=== PATIENT | male | born 2000 | race Caucasian/White ===

== ENCOUNTER 2023-12-15 13:38 | Emergency (ER) | payer OTHER ==
[~2023-12-15] VITALS: Ht 172.7 cm; Wt 77.7 kg
[2023-12-15] MEDS: KETOROLAC 60MG 2ML VIAL IM ONE (15:48)
[2023-12-15] MEDS ORDERED: LIDO5DIS41 TOP (16:11)
[2023-12-15 16:18] VITALS: BP 136/88; TEMP 98.4; O2SAT 99
[2023-12-15] MEDS: LIDOCAINE 5% (LIDODERM) PATCH TD ONE (16:19)
== END 2023-12-15 16:23 | disposition home or self-care (01) ==
LOC: M ED 13:38
DX: S29.011A Strain of muscle and tendon of front wall of thorax, initial encounter (principal); M94.0 Chondrocostal junction syndrome [Tietze]; X50.0XXA Overexertion from strenuous movement or load, initial encounter; Z79.899 Other long term (current) drug therapy; Y92.9 Unspecified place or not applicable; Y93.89 Activity, other specified; Y99.9 Unspecified external cause status
CPT/HCPCS: 73030; 96372; 99284; J1885

== ENCOUNTER 2024-05-12 06:00 | Day surgery (SDC) | payer OTHER ==
[~2024-05-12] VITALS: Ht 172.7 cm; Wt 81.7 kg
[~2024-05-12 06:00] MED LIST: LIDO5DIS41 TOP; TRANEXAMIC ACID 100 MG/ML 10ML VIAL IV ONE
[2024-05-12] MEDS: fentaNYL 100 MCG/2 ML INJECTION IV PRN (07:31)
[2024-05-12] MEDS: MIDAZOLAM INJ 2MG/2ML VIAL IV PRN (07:31)
[2024-05-12] MEDS: dexAMETHasone 10MG/1ML VIAL PRES.FREE PN ONE (07:32)
[2024-05-12] MEDS ORDERED: dexmedeTOMIDine (4MCG/ML)200MCG/50ML BTL (PRECEDEX) As Ordered ONE (07:32)
[2024-05-12] MEDS ORDERED: LIDOCAINE 2% 100MG/5ML SDV (FOR ANES.) As Ordered ONE (07:32)
[2024-05-12] MEDS ORDERED: propofoL 200 MG/20 ML VIAL As Ordered ONE (07:32)
[2024-05-12] MEDS ORDERED: ACETAMINOPHEN 1000MG 100ML IV BAG As Ordered ONE (07:32)
[2024-05-12] MEDS ORDERED: ROCURONIUM BROMIDE 50MG/5ML VIAL As Ordered ONE (07:32)
[2024-05-12] MEDS ORDERED: ONDANSETRON 4MG 2ML VIAL As Ordered ONE (07:32)
[2024-05-12] MEDS: ceFAZolin SOD 2 GM in IV 1 EA IV ONE (08:00)
[2024-05-12] MEDS: TRANEXAMIC ACID 100 MG/ML 10ML VIAL As Ordered ONE (08:25)
[2024-05-12] MEDS: VANCOMYCIN 1000MG/20ML VIAL As Ordered ONE (11:23)
[2024-05-12] MEDS ORDERED: fentaNYL 100 MCG/2 ML INJECTION IV PRN (12:35)
[2024-05-12] MEDS ORDERED: oxyCODONE 5MG TAB PO PRN (12:35)
[2024-05-12] MEDS ORDERED: HYDROMORPHONE HCL 0.5 MG/ 0.5 ML SYRINGE IV PRN (12:35)
[2024-05-12] MEDS ORDERED: ONDANSETRON 4MG 2ML VIAL IV PRN (12:35)
[2024-05-12] MEDS ORDERED: LR 1,000 ML IV SCH (12:35)
[2024-05-12 13:21] VITALS: BP 121/63; TEMP 96.8; O2SAT 96
== END 2024-05-12 13:49 | disposition home or self-care (01) ==
LOC: M SDC 06:00
PROVIDERS: ATTEND Orthopaedic Surgery
DX: S29.011A Strain of muscle and tendon of front wall of thorax, initial encounter (principal); Y93.83 Activity, rough housing and horseplay; Y92.89 Other specified places as the place of occurrence of the external cause; Y99.9 Unspecified external cause status; X58.XXXA Exposure to other specified factors, initial encounter
CPT/HCPCS: 24341; 64415; 73020; C1713; C9290; J0131; J0690; J1100; J2250; J2405; J3010; J3370